=== PATIENT | female | born 1990 | race African-American/Black ===

== ENCOUNTER 2025-07-13 14:18 | Emergency (ER) | payer OTHER ==
[~2025-07-13] VITALS: Ht 162.6 cm; Wt 59.0 kg
[2025-07-13 14:30] VITALS: O2SAT 100
[2025-07-13] MEDS ORDERED: CEPH500T MT (17:46)
[2025-07-13] MEDS ORDERED: IBUP-2029 MT (17:46)
[2025-07-13] MEDS: IBUPROFEN 600MG TABLET PO ONE (18:06)
[2025-07-13 18:07] VITALS: BP 150/97; PULSE 88; RESP 19; TEMP 37.1; O2SAT 100
== END 2025-07-13 18:39 | disposition home or self-care (01) ==
LOC: ER 14:19
DX: M79.641 Pain in right hand (principal); S60.051A Contusion of right little finger without damage to nail, initial encounter; X58.XXXA Exposure to other specified factors, initial encounter; Y93.89 Activity, other specified; Y92.89 Other specified places as the place of occurrence of the external cause; Y99.8 Other external cause status
CPT/HCPCS: 29130; 73130; 99283